=== PATIENT | female | born 1955 | race Caucasian/White ===

== ENCOUNTER 2017-01-09 08:44 | Emergency (ER) | payer OTHER ==
[~2017-01-09] VITALS: Ht 175.3 cm; Wt 75.0 kg
[~2017-01-09 08:44] MED LIST: ANTACID500 MG PO; ASPIR-LOW81 MG PO; CALCIUM 500 +1 EACH PO; DAILY VALUE1 EACH PO; FIBER500 MG PO; LEVOTHYROXINE112 MCG PO; LOSARTAN-HCTZ1 EACH PO; LOVASTATIN40 MG PO; NOVOLOG 10100 UNITS/ SC; RECTIV30 GM PR; WELCHOL625 MG PO
[2017-01-09 09:35] LABS: EOSINOPHIL (%) 2.8 % (0-5); EOSINOPHIL COUNT 0.2 K/uL (0-0.3); HEMATOCRIT 41.2 % (36.0-46.0); IMMATURE GRANULOCYTE (%) 0.1 % (0.0-0.7); LYMPHOCYTE COUNT 2.1 K/uL (1.0-2.8); MCH 28.9 PG (29.0-34.0); MCV 90.2 FL (83-99); MONOCYTE (%) 6.7 % (3-12); MONOCYTE COUNT 0.5 K/uL (0-0.8); NEUTROPHIL (%) 59.3 % (45-76); PLATELET COUNT 416 K/uL (156-360); RBC DIS.WIDTH-CV 12.5 % (11.8-14.6); RBC DIS.WIDTH-SD 41.3 % (39-53); RED BLOOD COUNT 4.57 M/uL (3.80-5.20); WHITE BLOOD COUNT 6.7 K/uL (4.1-10.2)
[2017-01-09 09:42] LABS: CHLORIDE 108 mEq/L (99-109); SODIUM 143 mEq/L (136-147)
[2017-01-09 09:44] LABS: GLUCOSE 98 mg/dL (70-99)
[2017-01-09 09:45] LABS: ANION GAP 9 MEQ/L (2-14)
[2017-01-09 09:47] LABS: GFR ESTIMATE (CALCULATED) > 59 mL/min/
[2017-01-09 09:48] LABS: UREA NITROGEN (BUN) 17 mg/dL (9-23)
[2017-01-09] MEDS ORDERED: ANTIVERT25 MG PO (11:57)
[2017-01-09 12:14] VITALS: BP 160/91
== END 2017-01-09 12:15 | disposition home or self-care (01) ==
LOC: EME 08:44
PROVIDERS: Emergency Medicine
DX: R42 Dizziness and giddiness (principal); R11.2 Nausea with vomiting, unspecified; R05 Cough; I10 Essential (primary) hypertension; E78.5 Hyperlipidemia, unspecified; E11.9 Type 2 diabetes mellitus without complications; Z79.4 Long term (current) use of insulin; Z79.82 Long term (current) use of aspirin
CPT/HCPCS: 80048; 85025; 93005; 99281; 99285; J2405; J7030

== ENCOUNTER 2018-06-16 19:06 | Emergency (ER) | payer OTHER ==
[~2018-06-16] VITALS: Ht 175.3 cm; Wt 78.9 kg
[~2018-06-16 19:06] MED LIST changes: +ANTIVERT25 MG PO
[2018-06-16 20:03] LABS: APPEARANCE CLEAR ((CLEAR)); BILIRUBIN NEGATIVE; BLOOD SMALL; COLOR YELLOW ((YELLOW)); GLUCOSE (STRIP) NEGATIVE; KETONES 20; LEUKOCYTES NEGATIVE; NITRITE NEGATIVE; PROTEIN (STRIP) 30; SPECIFIC GRAVITY 1.027 (1.000-1.030); UROBILINOGEN 0.2 MG/DL (0.2-1.0)
[2018-06-16 20:08] LABS: BACTERIA RARE /HPF; EPITHELIAL CELLS RARE /HPF; HYALINE CASTS 0-5 /LPF; MUCUS TRACE /LPF; RED BLOOD CELLS 0-5 /HPF (0-5); UCUL ADDED? NO; WHITE BLOOD CELLS 0-5 /HPF (0-5)
[2018-06-16 20:12] LABS: HEMATOCRIT 37.9 % (36.0-46.0); HEMOGLOBIN 12.4 G/DL (11.9-15.5); MCH 29.5 PG (29.0-34.0); MCHC 32.7 G/DL (30.0-36.0); PLATELET COUNT 217 K/uL (156-360); RBC DIS.WIDTH-CV 12.9 % (11.8-14.6); RBC DIS.WIDTH-SD 42.5 % (39-53); RED BLOOD COUNT 4.21 M/uL (3.80-5.20); WHITE BLOOD COUNT 4.1 K/uL (4.1-10.2)
[2018-06-16 20:29] LABS: CHLORIDE 100 mEq/L (99-109); SODIUM 134 mEq/L (136-147)
[2018-06-16 20:31] LABS: GLUCOSE 216 mg/dL (70-99)
[2018-06-16 20:35] LABS: GFR ESTIMATE (CALCULATED) > 59 mL/min/; UREA NITROGEN (BUN) 18 mg/dL (9-23)
[2018-06-16 21:34] LABS: CREATINE KINASE 235 IU/L (1-294)
[2018-06-16] MEDS ORDERED: ZITHROMAX Z-PA250 MG PO (21:51)
[2018-06-16 22:22] VITALS: BP 130/66
[2018-06-17 10:05] LABS: LYME DISEASE SEROLOGY SCREEN NEGATIVE (NEGATIVE)
== END 2018-06-16 22:23 | disposition home or self-care (01) ==
LOC: EME 19:06
PROVIDERS: Nurse Practitioner Family; Physician Assistant
DX: J18.9 Pneumonia, unspecified organism (principal); R51 Headache; E10.9 Type 1 diabetes mellitus without complications; Z79.4 Long term (current) use of insulin; E78.5 Hyperlipidemia, unspecified; I10 Essential (primary) hypertension; Z79.82 Long term (current) use of aspirin; Z88.5 Allergy status to narcotic agent
CPT/HCPCS: 70450; 71046; 80048; 81003; 82550; 82948; 83605; 85027; 86618; 87040; 87651 90; 99281; 99284; J0696; J7030